=== PATIENT | female | born 1990 | race Caucasian/White ===

== ENCOUNTER 2018-12-04 20:49 | Emergency (ER) | payer OTHER, SELFPAY | END 2018-12-04 21:26 | disposition home or self-care (01) | LOC: ERS 20:49 | DX: L02.411 Cutaneous abscess of right axilla (principal); L03.111 Cellulitis of right axilla | CPT/HCPCS: 10061 ==

== ENCOUNTER 2019-09-09 17:21 | Emergency (ER) | payer OTHER ==
[2019-09-09] MEDS ORDERED: Ondansetron ODT 4 MG TAB ONE (18:04)
[2019-09-09] MEDS ORDERED: Acetaminophen 500 MG TAB ONE (18:04)
[2019-09-09] MEDS ORDERED: Benzocaine 20% Spray 60 ML CAN FS SCH (18:15)
[2019-09-09] MEDS ORDERED: Benzocaine 20% Spray 60 ML CAN ONE ×2 (18:17→18:20)
[2019-09-09] MEDS ORDERED: Dexamethasone 10 MG/ML VIAL ONE (18:40)
== END 2019-09-09 18:55 | disposition home or self-care (01) ==
LOC: ERS 17:21
DX: J02.0 Streptococcal pharyngitis (principal); R11.2 Nausea with vomiting, unspecified; F41.9 Anxiety disorder, unspecified
CPT/HCPCS: 87804; 99284; J1100; Q0162